=== PATIENT | female | born 1965 | race Caucasian/White ===

== ENCOUNTER 2019-05-27 17:49 | Emergency (ER) | payer OTHER ==
[~2019-05-27] VITALS: Ht 157.5 cm; Wt 64.9 kg
[2019-05-27 17:58] VITALS: BP 145/66; Ht 157.5 cm; Wt 64.9 kg
== END 2019-05-27 20:28 | disposition home or self-care (01) ==
LOC: ED 17:49
DX: M54.5 Low back pain (principal); E11.9 Type 2 diabetes mellitus without complications; R11.0 Nausea
CPT/HCPCS: J1885